=== PATIENT | female | born 1980 | race Caucasian/White ===

== ENCOUNTER 2020-10-28 08:13 | Emergency (ER) | payer OTHER ==
[~2020-10-28] VITALS: Ht 162.6 cm; Wt 77.1 kg
--- NOTE | 2020-10-28 09:36 | NUR ---
Per Dr. Duarte, pt stable for discharge. DC instructions given and reviewed with pt. Verbalized understanding. Left ER in stable condition.
[2020-10-28 09:37] VITALS: BP 132/77
== END 2020-10-28 09:38 | disposition home or self-care (01) ==
LOC: ER 08:13
DX: S00.93XA Contusion of unspecified part of head, initial encounter (principal); W01.10XA Fall on same level from slipping, tripping and stumbling with subsequent striking against unspecified object, initial encounter; Y92.89 Other specified places as the place of occurrence of the external cause; I10 Essential (primary) hypertension; J45.909 Unspecified asthma, uncomplicated
CPT/HCPCS: 70450; A4663